=== PATIENT | male | born 1995 | race African-American/Black ===

== ENCOUNTER 2024-02-02 10:49 | Inpatient (IN) ==
[2024-02-02 11:31] LABS: Mean Corpuscular Hemoglobin 17.2 pg (25.0-34.0); Mean Corpuscular Volume 61.5 fL (80.0-100.0); Mean Platelet Volume 10.2 fL (9.4-12.4); Platelet Count 337 K/uL (130-400); RDW Coefficient of Variation 17.4 % (11.5-14.5); RDW Standard Deviation 38.2 fL (36.4-46.3); Red Blood Count 3.25 M/uL (4.70-6.10); White Blood Count 7.62 K/ul (4.8-10.8)
--- NOTE | 2024-02-02 11:32 | XRay Report ---
SINGLE VIEW CHEST CLINICAL HISTORY: Dyspnea FINDINGS: 2 AP, portable, upright chest radiographs are obtained. No prior studies are available for comparison at the time of dictation. The cardiomediastinal silhouette is unremarkable. The lungs and pleural spaces are clear. No pneumothorax is seen. The bony thorax is grossly intact. IMPRESSION: No active disease in the chest. ACT 112: Negative or not required by law. Electronically signed by: Myron Moreland M.D. 02/02/2024 11:31 AM
[2024-02-02 11:33] LABS: Hemoglobin 5.6 g/dl (14.0-18.0)
[2024-02-02] MEDS ORDERED: SODIUM CHLORIDE 0.9% 50 ML IV PRN (11:38)
[2024-02-02] MEDS ORDERED: SODIUM CHLORIDE 0.9% 100 ML IV PRN (11:38)
[2024-02-02 11:43] LABS: BUN Creatinine Ratio 6.4 (10-20); Calcium 9.7 mg/dl (8.6-10.3); Creatinine Clr Calc Pharmacy 79.7 ml/min; Potassium 3.7 mmol/L (3.5-5.1)
[2024-02-02 11:45] LABS: Basophils # (auto) 0.03 K/uL (0.00-0.20); Basophils % (auto) 0.4 %; Eosinophils # (auto) 0.02 K/uL (0.00-0.50); Eosinophils % (auto) 0.3 %; Hypochromasia Present; Immature Granulocytes # (auto) 0.07 K/uL (0.01-0.20); Immature Granulocytes % (auto) 0.9 %; Lymphocytes # (auto) 1.49 K/uL (1.20-3.40); Lymphocytes % (auto) 19.6 %; Microcytosis Present; Monocytes # (auto) 0.31 K/uL (0.11-0.59); Monocytes % (auto) 4.1 %; Neutrophils % (auto) 74.7 %
--- NOTE | 2024-02-02 12:12 | Emergency Department Note ---
Impression & Plan GI bleed ED Provider Note NAME: MARVIN TREADWELL AGE: 28 SEX: M : 1995 ARRIVES VIA: Walk-In INFORMANT: Patient, ED PROVIDER(S): Consuelo Momin MD CHIEF COMPLAINT: Low hemoglobin HPI: This is a 28-year-old male presenting for low hemoglobin. Patient states that he has had GI bleed for some time. Whenever he has a bowel movement he notes some bright red blood, specifically with wiping. He notes there is no leakage of blood at this time. He notes he has no history of previous anemia, sickle cell thalassemia. Patient notes that he has been increasingly short of breath specific with exertion over the past few days. ROS: See above HPI for pertinent positives & negatives. A total of 10 systems reviewed and were otherwise negative. PAST MEDICAL HISTORY: See Below PAST SURGICAL HISTORY: See Below FAMILY HISTORY: See Below SOCIAL HISTORY: See Below HOME MEDICATIONS: See Below ALLERGIES: See Below VITALS: See Below PHYSICAL EXAMINATION: General: resting comfortably in no acute distress Head: Normocephalic and atraumatic Eyes: Normal inspection, extraocular muscles intact Ear, nose, throat: Normal external exam Neck: Normal range of motion Respiratory: lungs clear to auscultation bilaterally Cardiovascular: Regular rate/rhythm, no murmur GI: soft, nontender, no guarding or rebound Extremities: nontender, moves all extremities Neuro: The patient awake and alert, appropriately conversive, no focal deficits, symmetric faces Skin: Warm, dry, and intact MEDICAL DECISION MAKING: This is a pleasant 28-year-old male presenting for low hemoglobin. He does have active GI bleed as per the patient. He has not had any bowel movements today with blood. He does note blood last night with bowel movement. He notes he has history of hemorrhoids for many years well-controlled with [id number] medications. CT imaging is considered however patient has no current abdominal pain making SBO, diverticulitis, appendicitis unlikely. -Patient globin is reviewed and is at 5.6 today. - vital signs reviewed and do show a tachycardia to 124. This likely related to his anemia. -It is downtrending however still tachycardic with rates around 90-110. -Hemoglobin is currently 5.6. Will give 2 notes of packed blood red cells. -Patient is have a bowel movement here without blood. Last bloody bowel movements last night. -Discussed care with [facility] service admitted under Dr. Santana Differential diagnosis: GI bleed, iron deficient anemia, bleeding hemorrhoids, diverticulitis ER treatment provided: See below Diagnostics interpreted by me: ECG: None Cardiac Monitoring: An order was placed for continuous cardiac monitoring. The monitor shows a rate of 101 with sinus rhythm. Laboratory studies: As stated above and show below. Imaging studies: See below. Critical Care Note: I have personally spent 35 minutes of critical care time in the direct management of this patient. This includes bedside care, interpretation of diagnostic studies, and testing, discussion with consultants, patient, and family members, and other required patient management activities. This 35 minutes is in excess of all separately billable procedures. Past Med/Surg History Problem List (Updated 02/02/24 @ 13:15 by Consuelo Momin MD) GI bleed (Acute) Social History Smoking Status: Never smoker Preferred Language: Czech Feels Safe at Home: Yes Results & Data (ED) Vital Signs Vital Signs - 24 hr 02/02/24 10:51 02/02/24 12:12 02/02/24 12:21 Temperature 36.6 C Temperature Source Temporal Artery Scan Pulse Rate 124 H 93 H Pulse Rate [Apical] 92 H Respiratory Rate 18 18 Respiratory Effort / Characteristics Non-Labored Respiratory Depth Normal Respiratory Pattern Regular Blood Pressure 137/72 Blood Pressure [Right Arm] 124/86 Blood Pressure Mean 93 Blood Pressure Mean [Right Arm] 98 Pulse Oximetry 100 98 Oxygen Delivery Method Room Air Sepsis Recent Fever Within 48 Hours No Sepsis New/Unexplained Change in Mental Status N/A Sepsis Action Taken by Nursing No Action Required 02/02/24 12:44 02/02/24 13:01 Temperature 36.3 C L 37.0 C Temperature Source Oral Oral Pulse Rate 111 H 94 H Pulse Rate [Apical] Respiratory Rate 18 17 Respiratory Effort / Characteristics Respiratory Depth Respiratory Pattern Blood Pressure 145/92 H 135/74 Blood Pressure [Right Arm] Blood Pressure Mean 109 94 Blood Pressure Mean [Right Arm] Pulse Oximetry 98 100 Oxygen Delivery Method Sepsis Recent Fever Within 48 Hours Sepsis New/Unexplained Change in Mental Status Sepsis Action Taken by Nursing Laboratory Data 02/02/24 11:06 02/02/24 11:06 Lab Results 02/02/24 02/02/24 02/02/24 Range/Units 11:06 11:07 11:07 WBC 7.62 (4.8-10.8) K/ul RBC 3.25 L (4.70-6.10) M/uL Hgb 5.6 L* (14.0-18.0) g/dl Hct 20.0 L* (42.0-52.0) % MCV 61.5 L (80.0-100.0) fL MCH 17.2 L (25.0-34.0) pg MCHC 28.0 L (32.0-36.0) g/dL RDW Std Deviation 38.2 (36.4-46.3) fL RDW Coeff of Xochitl 17.4 H (11.5-14.5) % Plt Count 337 (130-400) K/uL MPV 10.2 (9.4-12.4) fL Immature Gran % (Auto) 0.9 % Neut % (Auto) 74.7 % Lymph % (Auto) 19.6 % Flag[place] % (Auto) 4.1 % Eos % (Auto) 0.3 % Baso % (Auto) 0.4 % Neut # (Auto) 5.70 (1.40-6.50) K/uL Lymph # (Auto) 1.49 (1.20-3.40) K/uL Flagler # (Auto) 0.31 (0.11-0.59) K/uL Eos # (Auto) 0.02 (0.00-0.50) K/uL Baso # (Auto) 0.03 (0.00-0.20) K/uL Immature Gran # (Auto) 0.07 (0.01-0.20) K/uL Hypochromasia Present Microcytosis Present Sodium 137 (136-145) mmol/L Potassium 3.7 (3.5-5.1) mmol/L Chloride 106 (98-107) mmol/L Carbon Dioxide 21 (21-32) mmol/L Anion Gap 10 (3-11) BUN 9 (6-23) mg/dl Creatinine 1.40 (0.6-1.4) mg/dl Est Cr Clr Drug Dosing 79.7 ml/min eGFR 69.34 BUN/Creatinine Ratio 6.4 L (10-20) Glucose 107 H (70-99(Fasting)) mg/dl Calcium 9.7 (8.6-10.3) mg/dl Blood Type A Positive Cancelled Blood Type Recheck Antibody Screen NEGATIVE Crossmatch 02/02/24 02/02/24 Range/Units 11:07 11:42 WBC (4.8-10.8) K/ul RBC (4.70-6.10) M/uL Hgb (14.0-18.0) g/dl Hct (42.0-52.0) % MCV (80.0-100.0) fL MCH (25.0-34.0) pg MCHC (32.0-36.0) g/dL RDW Std Deviation (36.4-46.3) fL RDW Coeff of Xochitl (11.5-14.5) % Plt Count (130-400) K/uL MPV (9.4-12.4) fL Immature Gran % (Auto) % Neut % (Auto) % Lymph % (Auto) % Flagler % (Auto) % Eos % (Auto) % Baso % (Auto) % Neut # (Auto) (1.40-6.50) K/uL Lymph # (Auto) (1.20-3.40) K/uL Flagler # (Auto) (0.11-0.59) K/uL Eos # (Auto) (0.00-0.50) K/uL Baso # (Auto) (0.00-0.20) K/uL Immature Gran # (Auto) (0.01-0.20) K/uL Hypochromasia Microcytosis Sodium (136-145) mmol/L Potassium (3.5-5.1) mmol/L Chloride (98-107) mmol/L Carbon Dioxide (21-32) mmol/L Anion Gap (3-11) BUN (6-23) mg/dl Creatinine (0.6-1.4) mg/dl Est Cr Clr Drug Dosing ml/min eGFR BUN/Creatinine Ratio (10-20) Glucose (70-99(Fasting)) mg/dl Calcium (8.6-10.3) mg/dl Blood Type Blood Type Recheck A Positive Antibody Screen Cancelled Crossmatch See Detail Imaging Data Radiologist's Impression: Chest X-Ray 02/02/24 11:12 SINGLE VIEW CHEST CLINICAL HISTORY: Dyspnea FINDINGS: 2 AP, portable, upright chest radiographs are obtained. No prior studies are available for comparison at the time of dictation. The cardiomediastinal silhouette is unremarkable. The lungs and pleural spaces are clear. No pneumothorax is seen. The bony thorax is grossly intact. IMPRESSION: No active disease in the chest. ACT 112: Negative or not required by law. Electronically signed by: Myron Moreland M.D. 02/02/2024 11:31 AM Discharge Plan Visit Data Chief Complaint: Abnormal Labs/Diagnostic Testing Stated Complaint: LOW BLOOD COUNT, ANEMIC ED Provider: Consuelo Momin Discharge Problem: GI bleed Forms Stand Alone Forms: [facility] Referrals Referrals: [facility] [Primary Care Provider] - Discharge Problem: GI bleed Qualifiers: GI bleed type/associated pathology: anorectal hemorrhage Qualified Code(s): K 62.5 - Hemorrhage of anus and rectum
--- NOTE | 2024-02-02 12:42 | History & Physical Report ---
Date of Service February 02, 2024 Assessment & Plan (1) GI bleed: Plan: Presents with 2-3 weeks of worsening shortness of breath and fatigue without patient labs showing anemia. Reports fevers two days ago without cough/cold/congestion symptoms. -Hgb 5.6 on admission, 2units PRBCs ordered -Iron studies: iron 12, ferritin 2.4, elevated TIBC --> consider venofer vs PO iron depending on how much blood is needed -stool studies/cdiff ordered with recent fevers. GI consulted NPO until GI eval AM CBC and BMP (2) Iron deficiency anemia: (3) Acute blood loss anemia: (4) Hematochezia: Plan Dispo: med/tele DVT proh: low risk, encourage ambulation History of Present Illness Chief Complaint: abnormal labs outpatient Primary Care Provider: [facility] Bao is a 28M with no PMH. Who presents to the ED after being advised to come by [facility] for low hemoglobin. States that for the past 2-3 weeks he has been dealing with fatigue and headaches and shortness of breath with activity. Had blood work done with [facility] that showed he was severely anemic. He does endorse Bright red blood with bowel movements. States his has happened on and off since high school. He is orginally from [place] and had been seen by medical providers and was treated with cortisol for hemorrhoids and given diclofenac and paracetamol for pain. Last used hemorroid cream about 1 week ago. Did report fevers two days ago, no asssociated pain or congestions symptoms. Resolved with hydration and sleep. He has never had colonoscopy. States that he normally has a bowel movement once a day, more often loose. When he is constipated - he tries not to strain as that often results in more blood. Does report some blood on his underwear occasionally. Does not have blood in stools everyday. Does not follow a special diet. Does not take any daily medications. 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 Beliefs That Will Affect Care: None Current Living Situation: Other Current Living Situation Comment: Apartment with roommates Other Information That Helps Us Care for You: No Feels Safe at Home: Yes Safety Concerns: Feels Safe At This Time Assistive Devices: Glasses Review of Systems Review of Systems: All systems reviewed & are unremarkable except as noted in Subjective Physical Exam Physical Exam: General: NAD, VS as above, siting up in bed Resp: normal respiratory effort, lungs clear to auscultation CV: tachycardic but regular, no murmur, Abd: normal bowel sounds, non tender, soft : small external hemorrhoid, non thrombosed. No active bleeding, no fissure. Extremities: Moves all extremities, no edema Neuro: A&O x3, Results & Data Results & Data Vital Signs (Past 12 Hours) Vital Signs Temp Pulse Pulse Resp BP BP Pulse Ox 02/02/24 12:21 93 H 02/02/24 12:12 92 H 18 124/86 98 02/02/24 10:51 97.9 F 124 H 18 137/72 100 O2 Del Method 02/02/24 12:21 02/02/24 12:12 Room Air 02/02/24 10:51 Laboratory Results CBC and chemistry reviewed Diagnostic Findings CXR reviewed Supervising Physician Co-Signing Physician Notes I personally saw and examined the patient. I independently reviewed the labs, imaging, problem list, medication list, past medical history and family history. I verified all genao points and agree with Rosamaria Javier PA-C with the following exceptions and/or additions: 28 year old amle with longstanding history of presumed hemorrhoids presents to the ER due to anemia on outpatient labs O/E HS RRR, no murmurs, Chest CTAB, Abdo SNT A/P Presumed lower GI bleed / acute blood loss anemia / iron def. anemia - consult GI, transfuse <7, no abdominal pain to warrant CT imaging, stool PCR PG Care Time/CCT Total # of Minutes Spent Total Time Spent with Patient: Total time spent is greater than 50% in coordination of care (as documented) at patient's floor/unit and/or counseling patient: Coding Level of Care Code 67556 INT INP/OBS CARE MIN Diagnoses GI bleed K92.2 Iron deficiency anemia due to chronic blood loss D50.0 Iron deficiency anemia type: chronic blood loss Acute blood loss anemia D62 Hematochezia K92.1 (2) Iron deficiency anemia Iron deficiency anemia type: chronic blood loss Qualified Code(s): D50.0 - Iron deficiency anemia secondary to blood loss (chronic)
[2024-02-02 13:29] LABS: Ferritin 2.4 ng/ml (8-388)
[2024-02-02] MEDS ORDERED: ACETAMINOPHEN 325 MG TAB PO PRN (14:32)
[2024-02-02] MEDS ORDERED: bisacodyL 5 MG TABEC PO ONE (15:42)
--- NOTE | 2024-02-02 16:27 | Gastrointestinal Consultation ---
Date of Consultation February 02, 2024 Assessment & Plan (1) GI bleed: (2) Iron deficiency anemia: Severe iron deficiency anemia and rectal bleeding. Differential diagnosis: Chronic blood loss from hemorrhoids, proctitis, inflammatory bowel disease, malignancy is less likely. Celiac disease also should be considered. The patient will be scheduled for EGD and colonoscopy tomorrow. History of Present Illness Reason for Consultation: Iron deficiency anemia. Rectal bleeding. Attending Physician: Champ Santana MD History of Present Illness Complains of progressive fatigue, shortness of breath on exertion and headaches. Blood work showed hemoglobin 5.6, ferritin 2 and iron saturation 2%. Complains of occasional bright red blood per rectum with bowel movements. This has been present for approximately 1 year. He is occasionally constipated. Was diagnosed with hemorrhoids. Treated with hemorrhoid cream. He is otherwise healthy. Takes no medications except for as needed non-steroidals about once every couple of weeks. No prior colonoscopy. Other than occasional constipation denies diarrhea, nausea, vomiting, heartburn, abdominal pain. The patient is originally from [facility]. Student at [employer]. Allergies Allergy/AdvReac Type Severity Reaction Status Date / Time No Known Allergies Allergy Unverified 02/02/24 15:25 Home Medications Medication Instructions Recorded Confirmed Type No Known Home Medications 02/02/24 02/02/24 History Patient History Social History Smoking Status: Never smoker Hx Alcohol Use: No Hx Substance Use: No Preferred Language: Serbian Communication Ability: Effective Bilingual Medical Assistant Required: No Beliefs That Will Affect Care: None Current Living Situation: Other Current Living Situation Comment: Apartment with roommates Other Information That Helps Us Care for You: No Feels Safe at Home: Yes Safety Concerns: Feels Safe At This Time Assistive Devices: Glasses Review of Systems Review of Systems: Constitutional: Denies weight loss, chills, fever. Complains of progressive fatigue. Respiratory: Denies cough. Complains of shortness of breath with exertion. Cardiovascular: Denies chest pain and palpitations. Gastrointestinal: Denies nausea, vomiting, diarrhea, abdominal pain occasional rectal bleeding as per HPI.. Physical Exam Physical Exam: Constitutional: WD/WN, vitals as above Respiratory: normal respiratory effort, lungs clear to auscultation Cardiovascular: RRR, no murmur, no edema Gastrointestinal (Abdomen): normal bowel sounds, soft, nontender, no hepatosplenomegaly. Neurological: Oriented x 3, grossly no focal abnormalities, speech is intact. Results & Data Vital Signs (Past 12 Hours) Vital Signs Temp Pulse Pulse Resp BP BP Pulse Ox 02/02/24 15:36 36.7 C 95 H 19 120/68 100 02/02/24 15:36 36.7 C 95 H 120/68 100 02/02/24 15:21 36.9 C 85 18 134/75 100 02/02/24 15:05 37.0 C 87 18 127/73 100 02/02/24 14:56 36.8 C 83 17 119/69 100 02/02/24 14:47 36.8 C 84 18 149/79 H 100 02/02/24 14:32 36.9 C 97 H 151/76 H 02/02/24 13:47 105 H 18 126/69 100 02/02/24 13:17 92 H 16 137/80 100 02/02/24 13:01 37.0 C 94 H 17 135/74 100 02/02/24 12:44 36.3 C L 111 H 18 145/92 H 98 02/02/24 12:21 93 H 02/02/24 12:12 92 H 18 124/86 98 02/02/24 10:51 36.6 C 124 H 18 137/72 100 O2 Del Method 02/02/24 15:36 02/02/24 15:36 02/02/24 15:21 02/02/24 15:05 02/02/24 14:56 02/02/24 14:47 02/02/24 14:32 02/02/24 13:47 02/02/24 13:17 02/02/24 13:01 02/02/24 12:44 02/02/24 12:21 02/02/24 12:12 Room Air 02/02/24 10:51 PG Care Time/CCT Total # of Minutes Spent Total Time Spent with Patient: Total time spent is greater than 50% in coordination of care (as documented) at patient's floor/unit and/or counseling patient: Coding Level of Care Code 00542 INT INP/OBS CARE 2/55MIN Diagnoses GI bleed K62.5 GI bleed type/associated pathology: anorectal hemorrhage Iron deficiency anemia due to chronic blood loss D50.0 Iron deficiency anemia type: chronic blood loss (1) GI bleed GI bleed type/associated pathology: anorectal hemorrhage Qualified Code(s): K62.5 - Hemorrhage of anus and rectum (2) Iron deficiency anemia Iron deficiency anemia type: chronic blood loss Qualified Code(s): D50.0 - Iron deficiency anemia secondary to blood loss (chronic)
[2024-02-02] MEDS: bisacodyL 5 MG TABEC PO ONE (18:49)
[2024-02-02] MEDS: LAVAGE SOLUTION 4000ML PO ONE (19:50)
[2024-02-02 20:50] LABS: Hematocrit (blood only) 26.6 % (42.0-52.0)
[2024-02-03 04:54] LABS: Adenovirus F 40/41 PCR Not Detected (NotDetected); Astrovirus PCR Not Detected (NotDetected); Campylobacter PCR Not Detected (NotDetected); Cryptosporidium PCR Not Detected (NotDetected); Cyclospora cayetanensis PCR Not Detected (NotDetected); Entamoeba histolytica PCR Not Detected (NotDetected); Enteroaggregative E.coli(EAEC) Not Detected (NotDetected); Enteropathogenic E.coli (EPEC) Not Detected (NotDetected); Enterotoxigenic E.coli (ETEC) Not Detected (NotDetected); Giardia lamblia PCR Not Detected (NotDetected); Norovirus GI/GII PCR Not Detected (NotDetected); Plesiomonas shigelloides PCR Not Detected (NotDetected); Rotavirus A PCR Not Detected (NotDetected); Salmonella PCR Not Detected (NotDetected); Sapovirus PCR Not Detected (NotDetected); Shiga-like Toxin E.coli (STEC) Not Detected (NotDetected); Shigella/Enteroinvasive E.coli Not Detected (NotDetected); Vibrio cholerae PCR Not Detected (NotDetected); Vibrio species PCR Not Detected (NotDetected); Yersinia enterocolitica PCR Not Detected (NotDetected)
[2024-02-03 06:38] LABS: Basophils # (auto) 0.05 K/uL (0.00-0.20); Basophils % (auto) 0.6 %; Eosinophils % (auto) 1.3 %; Hematocrit (blood only) 25.5 % (42.0-52.0); Hemoglobin 7.8 g/dl (14.0-18.0); Immature Granulocytes # (auto) 0.04 K/uL (0.01-0.20); Immature Granulocytes % (auto) 0.5 %; Lymphocytes # (auto) 1.83 K/uL (1.20-3.40); Lymphocytes % (auto) 22.9 %; Mean Corpuscular Hemoglobin 20.6 pg (25.0-34.0); Mean Corpuscular Hgb Conc 30.6 g/dL (32.0-36.0); Mean Corpuscular Volume 67.5 fL (80.0-100.0); Monocytes # (auto) 0.61 K/uL (0.11-0.59); Monocytes % (auto) 7.6 %; Neutrophils # (auto) 5.36 K/uL (1.40-6.50); Neutrophils % (auto) 67.1 %; Nucleated RBC # (auto) 0.02 K/uL (0.00-0.12); Nucleated RBC % (auto) 0.3 %; RDW Coefficient of Variation 23.3 % (11.5-14.5); RDW Standard Deviation 54.4 fL (36.4-46.3); Red Blood Count 3.78 M/uL (4.70-6.10); White Blood Count 7.99 K/ul (4.8-10.8)
[2024-02-03 06:56] LABS: BUN Creatinine Ratio 6.2 (10-20); Creatinine Clr Calc Pharmacy 76.4 ml/min; Potassium 3.8 mmol/L (3.5-5.1)
[2024-02-03 07:10] LABS: Mean Platelet Volume 9.7 fL (9.4-12.4); Platelet Count 294 K/uL (130-400)
[2024-02-03 07:14] LABS: Hypochromasia Present; Microcytosis Present
[2024-02-03] MEDS ORDERED: SODIUM CHLORIDE 0.9% 100 ML IV PRN (07:58)
[2024-02-03] MEDS ORDERED: SODIUM CHLORIDE 0.9% 50 ML IV PRN (07:58)
--- NOTE | 2024-02-03 08:00 | Hospitalist Progress Note ---
Date of Service February 03, 2024 Assessment & Plan (1) GI bleed: Plan: Presents with 2-3 weeks of worsening shortness of breath and fatigue without patient labs showing anemia. Reports fevers two days ago without cough/cold/congestion symptoms. Suspected ongoing acute blood loss anemia from hemorrhoids but cannot rule out other Hgb 5.6 on admission, 2units PRBCs ordered Iron studies: iron 12, ferritin 2.4, elevated TIBC --> consider venofer vs PO iron depending on how much blood is needed GI consulted , made NPO 02/02 s/p 2u PRBC, hgb to 8 but 7.8 this morning Given Cr 1.46 will order additional 1u PRBC to transfuse (2units ordered) and will plan to repeat count following. Consideration for additional dose Venofer IV as well given iron studies vs outpt transfusion w/ PCP NPO for EGD/c-scope this afternoon Stool PCR/cdiff testing negative Patient is hopeful for dc this afternoon, discussed would AVOID further diclofenac which can worsen anemia/renal function. If EGD/c-scope negative for acute bleeding will discharge this evening. (2) Iron deficiency anemia: Plan: Noted MCV 61.5 on admission, iron studies with iron 12, ferritin 2.4, elevated TIBC Given 2u PRBC as above, additional unit for today as above. Consider dose of Venofer 200mg IV following vs in outpatient follow up ?underlying celiac -- Can f/u with PCP, consider checking TSH Monitor (3) Acute blood loss anemia: Plan: as above, planning for endoscopy for further evaluation but given patient reporting ongoing/worsening symptoms from hemorrhoidal bleeding do not suspect acute GI bleed but rather acute on chronic anemia from hemorrhoidal bleeding (4) Hematochezia: Plan: noted, see above for eval. suspected 2nd to hemorrhiods Plan NPO for EGD/c-scope today, possible discharge this evening pending results. Admission and Anticipated Discharge Date Admission Date: February 02, 2024 Supervising Physician Co-Signing Physician Notes The patient was not seen by me. The chart was reviewed. Case discussed with CHRISTOPHER Gamino. Agree with assessment and plan Subjective Eval this morning, sitting up in bed, NAD. 3rd unit PRBC transfusing for Hgb <8 and Cr 1.45. Denied NSAIDs but did note ta mirna paracetamol and diclofenac he had from [place]. Improvement in shortness of breath. NPO for endoscopy today. Endorses has NOT been acute issue but more of issue worsening recently with shortness of breath that has been going on for months and does have known hemorrhoids. When discussing monitoring scope/likely overnight and dc in AM, patient reporting he was hopeful for discharge today and discussed if endoscopy without acute bleeding can consider dc and likely f/u GI/colorectal at dc. Questions/concerns addressed at this time. Physical Exam Physical Exam: General: 28 male sitting up in bed, on tablet, NAD, getting blood/waiting endoscopy HEENT; head atraumatic, normocephalic, mm not significantly dry, trachea midline Resp; even/unlabored, no significant m/r/g, no pitting edema CV: NSR on telemetry, no significant m/r/g, no pitting edema/calf tenderness GI: +BS, soft/NT no conway, (prior noted small external hemorrhoid, non thrombosed without active bleeding -- deferred on exam today) MSK/Neuro: nonfocal, not confused, no slurred speech Psych: AOx3, cooperative with exam Results & Data Results & Data Vital Signs (Past 12 Hours) Vital Signs Temp Pulse Pulse Resp BP Pulse Ox O2 Del Method 02/03/24 07:21 82 02/03/24 07:14 37.2 C 80 18 114/71 100 Room Air 02/03/24 03:25 37.0 C 79 18 116/68 100 Room Air 02/02/24 22:45 36.8 C 75 18 106/63 100 Room Air 02/02/24 21:47 68 02/02/24 20:00 Room Air Laboratory Results 02/03/24 02/03/24 02/02/24 Range/Units Unknown 06:16 20:26 WBC 7.99 (4.8-10.8) K/ul RBC 3.78 L (4.70-6.10) M/uL Hgb 7.8 L 8.0 L (14.0-18.0) g/dl Hct 25.5 L 26.6 L (42.0-52.0) % MCV 67.5 L D (80.0-100.0) fL MCH 20.6 L (25.0-34.0) pg MCHC 30.6 L (32.0-36.0) g/dL RDW Std Deviation 54.4 H (36.4-46.3) fL RDW Coeff of Xochitl 23.3 H (11.5-14.5) % Plt Count 294 (130-400) K/uL MPV 9.7 (9.4-12.4) fL Immature Gran % (Auto) 0.5 % Neut % (Auto) 67.1 % Lymph % (Auto) 22.9 % [place] % (Auto) 7.6 % Eos % (Auto) 1.3 % Baso % (Auto) 0.6 % Neut # (Auto) 5.36 (1.40-6.50) K/uL Lymph # (Auto) 1.83 (1.20-3.40) K/uL [place] # (Auto) 0.61 H (0.11-0.59) K/uL Eos # (Auto) 0.10 (0.00-0.50) K/uL Baso # (Auto) 0.05 (0.00-0.20) K/uL Immature Gran # (Auto) 0.04 (0.01-0.20) K/uL Absolute Nucleated RBC 0.02 (0.00-0.12) K/uL Nucleated RBC % (auto) 0.3 % Hypochromasia Present Microcytosis Present Sodium 139 (136-145) mmol/L Potassium 3.8 (3.5-5.1) mmol/L Chloride 107 (98-107) mmol/L Carbon Dioxide 24 (21-32) mmol/L Anion Gap 8 (3-11) BUN 9 (6-23) mg/dl Creatinine 1.46 H (0.6-1.4) mg/dl Est Cr Clr Drug Dosing 76.4 ml/min eGFR 65.94 BUN/Creatinine Ratio 6.2 L (10-20) Glucose 88 (70-99(Fasting)) mg/dl Calcium 9.0 (8.6-10.3) mg/dl Iron (35-175) mcg/dl TIBC (250-450) mcg/dl Unsaturated IBC (155-355) mcg/dl Transferrin % Sat (20-50) % Ferritin (8-388) ng/ml Stl C. cayetanensis PCR Not Detected (NotDetected) Stool Rotavirus A PCR Not Detected (NotDetected) Stl Adenov F 40/41 PCR Not Detected (NotDetected) Stool Astrovirus (PCR) Not Detected (NotDetected) Stool Campylobacter PCR Not Detected (NotDetected) Stl C. diff Tox B Gene Negative Cdiff Gene (Neg) Stool Cryptosporidium PCR Not Detected (NotDetected) Stl E.coli Shiga Tox PCR Not Detected (NotDetected) Stl Enterotoxigenic E PCR Not Detected (NotDetected) Stool EPEC (PCR) Not Detected (NotDetected) Stool EAEC (PCR) Not Detected (NotDetected) Stl E. histolytica PCR Not Detected (NotDetected) Stool Giardia Lamblia PCR Not Detected (NotDetected) Stool Salmonella PCR Not Detected (NotDetected) Stool Sapovirus (PCR) Not Detected (NotDetected) Stl P. shigelloides PCR Not Detected (NotDetected) Stl Shigella/EIEC PCR Not Detected (NotDetected) St Y.enterocolitica PCR Not Detected (NotDetected) Stool Vibrio (PCR) Not Detected (NotDetected) Stl Vibrio cholerae PCR Not Detected (NotDetected) Stl Norovirus GI/GII PCR Not Detected (NotDetected) Blood Type Blood Type Recheck Antibody Screen Crossmatch 02/02/24 02/02/24 02/02/24 Range/Units 11:42 11:07 11:07 WBC (4.8-10.8) K/ul RBC (4.70-6.10) M/uL Hgb (14.0-18.0) g/dl Hct (42.0-52.0) % MCV (80.0-100.0) fL MCH (25.0-34.0) pg MCHC (32.0-36.0) g/dL RDW Std Deviation (36.4-46.3) fL RDW Coeff of Xochitl (11.5-14.5) % Plt Count (130-400) K/uL MPV (9.4-12.4) fL Immature Gran % (Auto) % Neut % (Auto) % Lymph % (Auto) % [place] % (Auto) % Eos % (Auto) % Baso % (Auto) % Neut # (Auto) (1.40-6.50) K/uL Lymph # (Auto) (1.20-3.40) K/uL [place] # (Auto) (0.11-0.59) K/uL Eos # (Auto) (0.00-0.50) K/uL Baso # (Auto) (0.00-0.20) K/uL Immature Gran # (Auto) (0.01-0.20) K/uL Absolute Nucleated RBC (0.00-0.12) K/uL Nucleated RBC % (auto) % Hypochromasia Microcytosis Sodium (136-145) mmol/L Potassium (3.5-5.1) mmol/L Chloride (98-107) mmol/L Carbon Dioxide (21-32) mmol/L Anion Gap (3-11) BUN (6-23) mg/dl Creatinine (0.6-1.4) mg/dl Est Cr Clr Drug Dosing ml/min eGFR BUN/Creatinine Ratio (10-20) Glucose (70-99(Fasting)) mg/dl Calcium (8.6-10.3) mg/dl Iron (35-175) mcg/dl TIBC (250-450) mcg/dl Unsaturated IBC (155-355) mcg/dl Transferrin % Sat (20-50) % Ferritin (8-388) ng/ml Stl C. cayetanensis PCR (NotDetected) Stool Rotavirus A PCR (NotDetected) Stl Adenov F 40/41 PCR (NotDetected) Stool Astrovirus (PCR) (NotDetected) Stool Campylobacter PCR (NotDetected) Stl C. diff Tox B Gene (Neg) Stool Cryptosporidium PCR (NotDetected) Stl E.coli Shiga Tox PCR (NotDetected) Stl Enterotoxigenic E PCR (NotDetected) Stool EPEC (PCR) (NotDetected) Stool EAEC (PCR) (NotDetected) Stl E. histolytica PCR (NotDetected) Stool Giardia Lamblia PCR (NotDetected) Stool Salmonella PCR (NotDetected) Stool Sapovirus (PCR) (NotDetected) Stl P. shigelloides PCR (NotDetected) Stl Shigella/EIEC PCR (NotDetected) St Y.enterocolitica PCR (NotDetected) Stool Vibrio (PCR) (NotDetected) Stl Vibrio cholerae PCR (NotDetected) Stl Norovirus GI/GII PCR (NotDetected) Blood Type Cancelled Blood Type Recheck A Positive Antibody Screen Cancelled NEGATIVE Crossmatch See Detail 02/02/24 02/02/24 Range/Units 11:07 11:06 WBC 7.62 (4.8-10.8) K/ul RBC 3.25 L (4.70-6.10) M/uL Hgb 5.6 L* (14.0-18.0) g/dl Hct 20.0 L* (42.0-52.0) % MCV 61.5 L (80.0-100.0) fL MCH 17.2 L (25.0-34.0) pg MCHC 28.0 L (32.0-36.0) g/dL RDW Std Deviation 38.2 (36.4-46.3) fL RDW Coeff of Xochitl 17.4 H (11.5-14.5) % Plt Count 337 (130-400) K/uL MPV 10.2 (9.4-12.4) fL Immature Gran % (Auto) 0.9 % Neut % (Auto) 74.7 % Lymph % (Auto) 19.6 % [place] % (Auto) 4.1 % Eos % (Auto) 0.3 % Baso % (Auto) 0.4 % Neut # (Auto) 5.70 (1.40-6.50) K/uL Lymph # (Auto) 1.49 (1.20-3.40) K/uL [place] # (Auto) 0.31 (0.11-0.59) K/uL Eos # (Auto) 0.02 (0.00-0.50) K/uL Baso # (Auto) 0.03 (0.00-0.20) K/uL Immature Gran # (Auto) 0.07 (0.01-0.20) K/uL Absolute Nucleated RBC (0.00-0.12) K/uL Nucleated RBC % (auto) % Hypochromasia Present Microcytosis Present Sodium 137 (136-145) mmol/L Potassium 3.7 (3.5-5.1) mmol/L Chloride 106 (98-107) mmol/L Carbon Dioxide 21 (21-32) mmol/L Anion Gap 10 (3-11) BUN 9 (6-23) mg/dl Creatinine 1.40 (0.6-1.4) mg/dl Est Cr Clr Drug Dosing 79.7 ml/min eGFR 69.34 BUN/Creatinine Ratio 6.4 L (10-20) Glucose 107 H (70-99(Fasting)) mg/dl Calcium 9.7 (8.6-10.3) mg/dl Iron 12 L (35-175) mcg/dl TIBC 546 H (250-450) mcg/dl Unsaturated IBC 534 H (155-355) mcg/dl Transferrin % Sat 2 L (20-50) % Ferritin 2.4 L (8-388) ng/ml Stl C. cayetanensis PCR (NotDetected) Stool Rotavirus A PCR (NotDetected) Stl Adenov F 40/41 PCR (NotDetected) Stool Astrovirus (PCR) (NotDetected) Stool Campylobacter PCR (NotDetected) Stl C. diff Tox B Gene (Neg) Stool Cryptosporidium PCR (NotDetected) Stl E.coli Shiga Tox PCR (NotDetected) Stl Enterotoxigenic E PCR (NotDetected) Stool EPEC (PCR) (NotDetected) Stool EAEC (PCR) (NotDetected) Stl E. histolytica PCR (NotDetected) Stool Giardia Lamblia PCR (NotDetected) Stool Salmonella PCR (NotDetected) Stool Sapovirus (PCR) (NotDetected) Stl P. shigelloides PCR (NotDetected) Stl Shigella/EIEC PCR (NotDetected) St Y.enterocolitica PCR (NotDetected) Stool Vibrio (PCR) (NotDetected) Stl Vibrio cholerae PCR (NotDetected) Stl Norovirus GI/GII PCR (NotDetected) Blood Type A Positive Blood Type Recheck Antibody Screen Crossmatch Diagnostic Findings Chest X-Ray 02/02/24 11:12 SINGLE VIEW CHEST CLINICAL HISTORY: Dyspnea FINDINGS: 2 AP, portable, upright chest radiographs are obtained. No prior studies are available for comparison at the time of dictation. The cardiomediastinal silhouette is unremarkable. The lungs and pleural spaces are clear. No pneumothorax is seen. The bony thorax is grossly intact. IMPRESSION: No active disease in the chest. ACT 112: Negative or not required by law. Electronically signed by: Myron Moreland M.D. 02/02/2024 11:31 AM PG Care Time/CCT Total # of Minutes Spent Total Time Spent with Patient: Total time spent is greater than 50% in coordination of care (as documented) at patient's floor/unit and/or counseling patient: Coding Level of Care Code 96132 SUB INP/OBS CARE 3/50MIN Diagnoses GI bleed K62.5 GI bleed type/associated pathology: anorectal hemorrhage Iron deficiency anemia due to chronic blood loss D50.0 Iron deficiency anemia type: chronic blood loss Acute blood loss anemia D62 Hematochezia K92.1 (1) GI bleed GI bleed type/associated pathology: anorectal hemorrhage Qualified Code(s): K62.5 - Hemorrhage of anus and rectum (2) Iron deficiency anemia Iron deficiency anemia type: chronic blood loss Qualified Code(s): D50.0 - Iron deficiency anemia secondary to blood loss (chronic)
--- NOTE | 2024-02-03 09:36 | History & Physical Bridge Note ---
Date of Service February 03, 2024 History & Physical Bridge Note I have examined the patient, reviewed the History & Physical and in the interval since the performance of the History & Physical I have noted the following changes of clinical significance: H/H 7.8/25.5. He notes that he was able to complete his bowel prep last night. He notes an episode of bleeding with the prep, then notes it was clear thereafter. He is currently receiving a blood transfusion. Keep NPO. Proceed with EGD & colonoscopy today (02/03/24). Supervising Physician Co-Signing Physician Notes I examined the patient and reviewed patient's chart , laboratory data and imaging studies. I agree with with assessment and plan of care as suggested by advanced practice provider
[2024-02-03 13:21] LABS: Hematocrit (blood only) 29.3 % (42.0-52.0); Hemoglobin 9.2 g/dl (14.0-18.0)
[2024-02-03 13:45] LABS: BUN Creatinine Ratio 6.4 (10-20); Creatinine Clr Calc Pharmacy 79.7 ml/min; Potassium 3.8 mmol/L (3.5-5.1)
[2024-02-03 13:59] LABS: Thyroid Stimulating Hormone 1.75 uIu/ml (0.300-4.500)
--- NOTE | 2024-02-03 14:29 | Anesthesiology Consultation ---
Date of Service February 03, 2024 Assessment & Plan Chart Review Chart Review: Acceptable Risk for Surgery Consults Requested none ASA ASA1 Proposed Anesthesia Anesthesia Type: CSE Additional Notes o/w healthy 28 yo M with new onset anemia History Surgery Operation Date: 02/03/24 16:45 Proposed Procedures p Colonoscopy EGD Dr. Holland - Harpreet Holland MD Height/Weight Height: 5 ft 10 in Weight: 76.4 kg Allergies Allergy/AdvReac Type Severity Reaction Status Date / Time No Known Allergies Allergy Unverified 02/02/24 15:25 Medications Home Medications Medication Instructions Recorded Confirmed Last Taken No Known Home Medications 02/02/24 02/02/24 Unknown NPO Date Last Intake of Fluids: 02/03/24 Time Last Intake of Fluids: 02:00 Date Last Intake of Solids: 02/01/24 Past Medical History chart note for ref: Bao is a 28M with no PMH. Who presents to the ED after being advised to come by [facility] for low hemoglobin. States that for the past 2-3 weeks he has been dealing with fatigue and headaches and shortness of breath with activity. Had blood work done with [facility] that showed he was severely anemic. He does endorse Bright red blood with bowel movements. States his has happened on and off since high school. He is orginally from [place] and had been seen by medical providers and was treated with cortisol for hemorrhoids and given diclofenac and paracetamol for pain. Last used hemorroid cream about 1 week ago. Did report fevers two days ago, no asssociated pain or congestions symptoms. Resolved with hydration and sleep. He has never had colonoscopy. States that he normally has a bowel movement once a day, more often loose. When he is constipated - he tries not to strain as that often results in more blood. Does report some blood on his underwear occasionally. Does not have blood in stools everyday. Does not follow a special diet. Does not take any daily medications. History of PONV No Hx of PONV and No Hx of Motion Sickness Social History Smoking Status: Never smoker Hx Alcohol Use: No Alcohol Intake Frequency Comment: Very infrequent social drinker Hx Substance Use: No Review of Systems ROS Unobtainable: All systems reviewed & are unremarkable except as noted in HPI & below Physical Exam Vital Signs Last Vital Signs Temp 37.1 C 02/03/24 13:47 Pulse 90 11/01/24 13:47 Resp 16 02/03/24 13:47 BP 147/72 H 02/03/24 13:47 Pulse Ox 100 02/03/24 13:47 O2 Del Method Room Air 02/03/24 13:47 Constitutional + acute distress ENMT Mouth: no TMJ abnormality and no dentition abnormality Mallampati Class: II All teeth intact and in excellent condition Neck normal visual inspection Respiratory normal respiratory effort Auscultation: lungs clear to auscultation bilaterally Cardiovascular Rate/Rhythm: regular rate and regular rhythm Neurologic unremarkable Testing Laboratory Results 02/03/24 12:55 02/03/24 12:55 Blood Type A Positive 02/02/24 11:07 Blood Type Cancelled 02/02/24 11:07 Antibody Screen Cancelled 02/02/24 11:07 Antibody Screen NEGATIVE 02/02/24 11:07 Electrocardiogram s/p 3 units PRBC in hospital Chest X-Ray Findings: + NAD
--- NOTE | 2024-02-03 15:12 | GI REPORT ---
[facility] Patient: MARVIN TREADWELL : 1995 Sex at : Male Age: 28 Years Procedure: Upper GI endoscopy Date: 02/03/2024 Attending Physician: Harpreet Holland MD Referring MD: Referred Self; Jared Anders Indications: - Iron deficiency anemia - Recent gastrointestinal bleeding Medications: - Monitored Anesthesia Care Complications: - No immediate complications. Estimated Blood Loss: - Estimated blood loss: None. Procedure: - The egd scope was introduced through the mouth and advanced to the third part of the duodenum. - The upper GI endoscopy was accomplished without difficulty. - The patient tolerated the procedure well. Findings: - The examined esophagus was normal. No evidence of esophagitis or Orosco's mucosa. - The entire examined stomach was normal. - The examined duodenum was normal. Impression: - Normal esophagus. - No evidence of esophagitis or Orosco's mucosa. - Normal stomach. - Normal examined duodenum. - No specimens collected. Recommendation: - I anticipate no further need for intervention. - Observe patient's clinical course. - Follow-up with colorectal surgery. - Okay to discharge today from GI standpoint. Procedure Code(s): - 03893, Esophagogastroduodenoscopy, flexible, transoral; diagnostic, including collection of specimen(s) by brushing or washing, when performed (separate procedure) Diagnosis Code(s): - D50.9, Iron deficiency anemia, unspecified - K92.2, Gastrointestinal hemorrhage, unspecified CPT(R) - 2023 copyright [employer]. All Rights Reserved. The CPT codes, CCI edits and ICD codes generated are intended as suggestions and were generated based on input data. These codes are preliminary and upon mems engineer review may be revised to meet current compliance and payer requirements. The provider is responsible for the final determination of appropriate codes, and modifiers. Harpreet Holland M.D. MD This document has been electronically signed. Note Initiated:02/03/2024 Note Completed:02/03/2024 3:11 PM \\[email or web address]\[email or web address]\Data\Provation\Results\LIVE\[id number]
--- NOTE | 2024-02-03 15:20 | Anesthesiology Progress Note ---
Date of Service February 03, 2024 Anesthesia Post Procedure Vital Signs Vital Signs: Temp Pulse Pulse Pulse Resp BP BP 02/03/24 15:08 82 16 99/58 L 02/03/24 13:47 37.1 C 90 16 147/72 H 02/03/24 12:35 37.0 C 81 16 124/72 02/03/24 12:35 36.9 C 73 18 118/71 02/03/24 12:29 37.1 C 76 18 116/73 02/03/24 11:29 37.1 C 69 18 116/73 02/03/24 10:29 37.0 C 76 18 122/70 02/03/24 09:59 36.9 C 84 18 130/71 02/03/24 09:44 37 C 84 17 115/70 02/03/24 09:25 37.1 C 81 18 129/73 02/03/24 07:21 82 02/03/24 07:14 37.2 C 80 18 114/71 02/03/24 03:25 37.0 C 79 18 116/68 02/02/24 22:45 36.8 C 75 18 106/63 02/02/24 21:47 68 02/02/24 20:00 02/02/24 19:11 36.8 C 78 18 130/72 02/02/24 18:35 37.1 C 80 17 118/68 02/02/24 18:06 37.0 C 79 17 121/75 02/02/24 17:06 37.1 C 85 17 120/69 02/02/24 16:06 36.9 C 97 H 18 115/70 02/02/24 15:36 36.7 C 95 H 19 120/68 02/02/24 15:36 36.7 C 95 H 120/68 02/02/24 15:21 36.9 C 85 18 134/75 Pulse Ox O2 Del Method 02/03/24 15:08 97 Room Air 02/03/24 13:47 100 Room Air 02/03/24 12:35 100 02/03/24 12:35 100 02/03/24 12:29 100 02/03/24 11:29 100 02/03/24 10:29 100 02/03/24 09:59 100 02/03/24 09:44 100 02/03/24 09:25 100 02/03/24 07:21 02/03/24 07:14 100 Room Air 02/03/24 03:25 100 Room Air 02/02/24 22:45 100 Room Air 02/02/24 21:47 02/02/24 20:00 Room Air 02/02/24 19:11 100 Room Air 02/02/24 18:35 100 02/02/24 18:06 100 02/02/24 17:06 100 02/02/24 16:06 100 02/02/24 15:36 100 02/02/24 15:36 100 02/02/24 15:21 100 Transfer of Care Handoff Completed per policy Notes Mental Status: alert / awake / arousable and participated in evaluation Patient Amnestic to Procedure: Yes Nausea / Vomiting: adequately controlled Pain: adequately controlled Airway Patency, RR, SpO2: stable & adequate BP & HR: stable & adequate Hydration State: stable & adequate Anesthetic Complications: no major complications apparent and Pt Satisfied with anesthetic care
--- NOTE | 2024-02-03 15:21 | GI REPORT ---
[facility] Patient: MARVIN TREADWELL : 1995 Sex at : Male Age: 28 Years Procedure: Colonoscopy Date: 02/03/2024 Attending Physician: Harpreet Holland MD Referring MD: Referred Self; Jared Anders Indications: - Rectal bleeding - Iron deficiency anemia Medications: - Monitored Anesthesia Care Complications: - No immediate complications. Estimated Blood Loss: - Estimated blood loss: None. Procedure: - The pediatric colonoscope was introduced through the anus and advanced to the terminal ileum, with identification of the appendiceal orifice and ileocecal valve. - The colonoscopy was performed without difficulty. - The quality of the bowel preparation was good. - The patient tolerated the procedure well. Findings: - Hemorrhoids were found on perianal exam. - Skin tags were found on perianal exam. There was a small thickened fold versus nodule in the anal area visualized during retroflexion. - Internal non-bleeding hemorrhoids were found during retroflexion. The hemorrhoids were small. - The colon (entire examined portion) appeared normal. In the anus there was a thickened fold versus a small about 5 mm nodule. Biopsy was not done. - There is no endoscopic evidence of diverticula, inflammation, mass or polyps in the entire colon. - The terminal ileum appeared normal. Impression: - Hemorrhoids found on perianal exam. - Perianal skin tags found on perianal exam. - Internal non-bleeding hemorrhoids. - The entire examined colon is normal. - In the anus there was a thickened fold versus a small about 5 mm nodule. Biopsy was not done. - The examined portion of the ileum was normal. - No specimens collected. Recommendation: - Discharge patient to home. - Repeat colonoscopy at age 43 for screening purposes. Procedure Code(s): - 38783, Colonoscopy, flexible; diagnostic, including collection of specimen(s) by brushing or washing, when performed (separate procedure) Diagnosis Code(s): - K62.5, Hemorrhage of anus and rectum - D50.9, Iron deficiency anemia, unspecified - K64.8, Other hemorrhoids - K64.4, Residual hemorrhoidal skin tags CPT(R) - 202 copyright [employer]. All Rights Reserved. The CPT codes, CCI edits and ICD codes generated are intended as suggestions and were generated based on input data. These codes are preliminary and upon logistics project manager review may be revised to meet current compliance and payer requirements. The provider is responsible for the final determination of appropriate codes, and modifiers. Harpreet Holland M.D., MD This document has been electronically signed. Note Initiated:02/03/2024 Note Completed:02/03/2024 3:19 PM \\[email or web address]\[email or web address]\Data\Provation\Results\LIVE\[id number]
[2024-02-03 15:39] VITALS: O2SAT 100
--- NOTE | 2024-02-03 15:40 | Discharge Summary ---
Discharge Summary Date of Service February 03, 2024 Principal Dx & Hospital Course #1 = Principal Diagnosis (1) GI bleed: Presents with 2-3 weeks of worsening shortness of breath and fatigue without patient labs showing anemia. Reported fevers two days ago without cough/cold/congestion symptoms (resolved w/ treatment as below) Suspected ongoing acute blood loss anemia from hemorrhoids Hgb 5.6 on admission, 2units PRBCs ordered initially with improvement in hemoglobin to 8. Iron studies obtained prior to transfusion which noted ZAYRA with iron 12, ferritin 2.4, elevated TIBC GI was consulted and patient underwent bowel prep with golytly per GI and made NPO for endoscopy for further evaluation. Stool/cdiff testing obtained which was NEGATIVE Was provided with total of 3u PRBC, Venofer 300mg IV and hgb 9.2 prior to Venofer infusion. s/p EGD and colonoscopy with Dr Holland 02/02 EGD negative for any acute bleeding. C-scope noting hemorrhoids on perianal exam, internal non-bleeding hemorrhoids. Discussed with GI and ok for discharge from GI perspective and follow up with colorectal surgery outpatient. Message sent to nurse navigator to arrange in follow up as outpatient. As Venofer 300mg IV prior to dc being provided and MCV 67.5 following first 2u PRBC on AM labs sent on once daily iron (wanting to avoid BID to prevent constipation/worsening hemorrhoidal bleeding issues) and encourage twice daily stool softener with colace 100mg BID to keep stools soft and prevent worsening bleeding and recommend patient follow up with [facility] for repeat labs this upcoming week to ensure stable. Sample Tester 1.4 on repeat and educated to AVOID further diclofenac which can worsen CKD but suspect elevation in setting of chronic anemia and should be monitored with replacement to ensure improvement. Discharge planned following diet if no issues with outpatient follow up (2) Iron deficiency anemia: Noted MCV 61.5 on admission, iron studies with iron 12, ferritin 2.4, elevated TIBC s/p 3u PRBC, given Venofer 300mg IV prior to discharge given MCV still in 60s and sent on once daily iron supplementation with colace to keep from constipation/worsening hemorrhoidal bleeding with straining. Can alternatively have outpatient follow up for Venofer infusions if not able to tolerate. TSH obtained for completeness which was normal. (3) Acute blood loss anemia: as above, planning for endoscopy for further evaluation but given patient reporting ongoing/worsening symptoms from hemorrhoidal bleeding do not suspect acute GI bleed but rather acute on chronic anemia from hemorrhoidal bleeding repeat hgb improved/stable, no further bleeding (4) Hematochezia: noted, see above. suspected 2nd to hemorrhoids w/ planned outpatient follow up with colorectal surgery planned. factory maintenance technician messaged/order placed to ensure follow up after discharge (5) CKD (chronic kidney disease): unclear prior baseline however Cr 1.4 on admission with GFR 69. Had been taking diclofenac occasionally for pain but recommended he AVOID NSAIDs to worsen renal function. EGD/C-scope as above, PRBC/Venofer and suspsect likely elevation from acute on chronic anemia and should be reassessed in follow up once iron stores replete. Plan discharged on oral iron/colace for stool softener and recommend repeat labs with S/PCP along with renal function in the next week. Suspect Cr 2nd to chronic anemia from blood loss from hemorrhoids requiring intervention in the future to prevent worsening issues. Notes For Next Care Provider Ensure follow up with colorectal surgery arranged (nursing navigator to arrange when back in office on Tuesday/message sent) Encourage bowel regimen with stool softener while on iron. If stable/improved and not dealing with issues can consider increasing to BID in follow up. Medication Changes From Visit Ferrous sulfate 325mg PO once daily Colace 100mg PO BID Admission HPI Per Admitting Provider Bao is a 28M with no PMH. Who presents to the ED after being advised to come by [facility] for low hemoglobin. States that for the past 2-3 weeks he has been dealing with fatigue and headaches and shortness of breath with activity. Had blood work done with [facility] that showed he was severely anemic. He does endorse Bright red blood with bowel movements. States his has happened on and off since high school. He is orginally from [place] and had been seen by medical providers and was treated with cortisol for hemorrhoids and given diclofenac and paracetamol for pain. Last used hemorroid cream about 1 week ago. Did report fevers two days ago, no asssociated pain or congestions symptoms. Resolved with hydration and sleep. He has never had colonoscopy. States that he normally has a bowel movement once a day, more often loose. When he is constipated - he tries not to strain as that often results in more blood. Does report some blood on his underwear occasionally. Does not have blood in stools everyday. Does not follow a special diet. Does not take any daily medications. Admission Exam Per Admitting Provider General: NAD, VS as above, siting up in bed Resp: normal respiratory effort, lungs clear to auscultation CV: tachycardic but regular, no murmur, Abd: normal bowel sounds, non tender, soft : small external hemorrhoid, non thrombosed. No active bleeding, no fissure. Extremities: Moves all extremities, no edema Neuro: A&O x3, Discharge Exam General: 28 male sitting up in bed, on tablet, NAD, getting blood/waiting endoscopy HEENT; head atraumatic, normocephalic, mm not significantly dry, trachea midline Resp; even/unlabored, no significant m/r/g, no pitting edema CV: NSR on telemetry, no significant m/r/g, no pitting edema/calf tenderness GI: +BS, soft/NT no conway, (prior noted small external hemorrhoid, non thrombosed without active bleeding -- deferred on exam today) MSK/Neuro: nonfocal, not confused, no slurred speech Psych: AOx3, cooperative with exam Discharge Plan Discharge Items Patient Disposition: Home - Self-Care Reason For Visit: GIB Discharge Diagnosis: Anemia, Hemorrhoidal Bleeding Goals: You have been hospitalized for an urgent problem which required endoscopy. During your stay at [facility], we have made an effort to correct the problem that brought you to the hospital while keeping you as comfortable as possible. Endoscopy and/or medications were used to bring your condition under control and your discharge instructions will include directions for any medications you should take after leaving the hospital. Please make sure to follow the advice of your surgeon regarding follow up with the surgeon and with your primary care provider. Activity: As commented below Non-emergency contact: Primary Care Provider and Mutuel Cashier Call non-emergency contact if: you have any medication questions, your symptoms worsen, your pain is not controlled, your pain is worsening and you have a fever Follow-up/Referrals: [facility] [Primary Care Provider] - Diet: Regular Addtl Attending Provider Instructions: You have been hospitalized for shortness of breath and found to be very anemic with low blood counts. You were transfused 3 units of blood and repeat blood counts have improved. GI was consulted and you underwent endoscopy with EGD/colonoscopy which did not show any active bleeding but noted hemorrhoids and recommendations are to have outpatient follow up with colorectal surgeon for hemorrhoid treatment/removal. Your iron levels were also found to be low due to this and you were also provided with dose of Venofer IV. --> We are going to send you on once daily oral iron. Please take a daily stool softener like Colace twice daily while taking this to prevent constipation as it can worsen constipation. If you have worsened constipation causing worsening bleeding on oral iron you may want to discuss about IV infusions as an outpatient as well. Prescriptions for these have been sent but may not be covered by your insurance and can also be purchased over the counter. Please follow [facility]primary care at discharge to monitor your progress/status after discharge. I recommend having repeat blood counts next week to ensure remaining stable as well as renal function testing. Please avoid taking any further diclofenac as this can make anemia/kidney disease worse. Please return to the ER with any worsening shortness of breath, lightheaded/dizziness, chest pain, fever/chills, or for any other symptoms c oncerning for you. Pending Studies at Discharge: No Stand-Alone Forms: Anesthesia/Sedation, Adult, [facility], Work/School Release, Smoking Cessation Medications and DC Order Prescriptions: New ferrous sulfate 325 mg (65 mg iron) tablet 325 mg PO DAILY Qty: 30 0RF docusate sodium [Colace] 100 mg capsule 100 mg PO BID Qty: 60 0RF Discharge Orders: Discharge Order (Routine); Ordered 02/03/24 Ordered By: Marleni Spence/Other Patient Handouts: Anemia, Iron Supplements Admission Data Admit Date/Time: 02/02/24 13:20 Attending Provider: Jared Anders Admit Provider: Champ Santana Primary Care Provider: [facility] [address] Other Providers: Champ Santana; Harpreet Holland Other Interventions: Discharge Summary Assessment (RN) Last Done: 02/03/24 17:54 Hospital Stay Data Consultations 02/02/24 12:32 ED Decision to Admit Stat 02/02/24 13:14 Consult Gastroenterology Routine 02/03/24 15:12 Consult [facility] carbonation equipment operator Routine Procedures Performed Operation Date: 02/03/24 16:45 Actual Procedures p Esophagogastroduodenoscopy - Harpreet Holland MD s Colonoscopy - Harpreet Holland MD Pending Results Patient Have Any Pending Studies at Discharge: No Discharge Instructions Given to Patient (Per Discharging Provider) You have been hospitalized for shortness of breath and found to be very anemic with low blood counts. You were transfused 3 units of blood and repeat blood counts have improved. GI was consulted and you underwent endoscopy with EGD/colonoscopy which did not show any active bleeding but noted hemorrhoids and recommendations are to have outpatient follow up with colorectal surgeon for hemorrhoid treatment/removal. Your iron levels were also found to be low due to this and you were also provided with dose of Venofer IV. --> We are going to send you on once daily oral iron. Please take a daily stool softener like Colace twice daily while taking this to prevent constipation as it can worsen constipation. If you have worsened constipation causing worsening bleeding on oral iron you may want to discuss about IV infusions as an outpatient as well. Prescriptions for these have been sent but may not be covered by your insurance and can also be purchased over the counter. Please follow up with [facility]primary care at discharge to monitor your progress/status after discharge. I recommend having repeat blood counts next week to ensure remaining stable as well as renal function testing. Please avoid taking any further diclofenac as this can make anemia/kidney disease worse. Please return to the ER with any worsening shortness of breath, lightheaded/dizziness, chest pain, fever/chills, or for any other symptoms concerning for you. Supervising Physician Co-Signing Physician Notes The patient was not seen by me. The chart was reviewed. Case discussed with CHRISTOPHER Gamino. Agree with assessment and plan Total Time Total Time Spent Total Time Spent (In Minutes): 40 Coding Level of Care Code 34460 INP/OBS DISCH >30 MIN Diagnoses GI bleed K62.5 GI bleed type/associated pathology: anorectal hemorrhage Iron deficiency anemia due to chronic blood loss D50.0 Iron deficiency anemia type: chronic blood loss Acute blood loss anemia D62 Hematochezia K92.1 CKD (chronic kidney disease) N18.9
[2024-02-03 16:09] VITALS: BP 122/77; RESP 18; TEMP 97.5
[2024-02-03] MEDS: IRON SUCROSE 300 MG in SODIUM CHLORIDE 0.9% 250 ML IV ONE (16:12)
[2024-02-03] MEDS: LIDOCAINE 2% 2 ML VIAL/AMP(20MG/ML) INFIL ONE (17:20)
[2024-02-03] MEDS: PROPOFOL IV EMULSION 10 MG/ML 20 ML VIAL IV ONE ×2 (17:21)
[2024-02-03 17:57] VITALS: PULSE 80
[2024-02-03] MEDS: INFLUENZA VACC TS2024-25(6m+)/PF (IIV3) 0.5mL Syr IM ONE (18:04)
== END 2024-02-03 18:28 | disposition home or self-care (01) | DRG 378 ==
LOC: ED 10:49 → SUATTDRO 13:20 → 2S 13:20